=== PATIENT | female | born 1950 | race Caucasian/White ===

== ENCOUNTER 2016-04-24 09:23 | Inpatient (IN) | payer MEDICARE, OTHER ==
[~2016-04-24] VITALS: Ht 162.6 cm; Wt 84.5 kg
[2016-04-24] MEDS ORDERED: OPTIRAY 350 100 ML VIAL HMH IV ONE (09:24)
[2016-04-24] MEDS ORDERED: SODIUM CHLORIDE 0.9% 1,000 ML ONE ×2 (11:03→17:00)
[2016-04-24] MEDS ORDERED: ONDANSETRON 4 MG VIAL ONE ×3 (11:03→16:23)
[2016-04-24] MEDS ORDERED: DICYCLOMINE 20MG/2ML VIAL IM ONE (11:03)
[2016-04-24] MEDS ORDERED: ED METRONIDAZOLE IV 100 ML IV ONE (13:54)
[2016-04-24] MEDS ORDERED: LEVOFLOXACIN 500 MG TAB ONE (13:54)
[2016-04-24] MEDS ORDERED: MORPHINE 4 MG/ML SYR ONE (15:45)
[2016-04-24] MEDS ORDERED: HYOSCYAMINE 0.5 MG/ML AMP 1 ML ONE (17:12)
[2016-04-24] MEDS ORDERED: MAG HYDROX 30 ML UDC PO PRN (18:05)
[2016-04-24] MEDS ORDERED: ACETAMINOPHEN 325 MG TAB PO PRN (18:05)
[2016-04-24] MEDS ORDERED: ONDANSETRON 4 MG VIAL IV PRN (18:05)
[2016-04-24] MEDS ORDERED: ALU/MAG/SIM 30 ML UDC PO PRN (18:05)
[2016-04-24 20:25] VITALS: BP_SYST 132; RESP 20; TEMP 98.9; Ht 162.6 cm; Wt 84.5 kg
[2016-04-24] MEDS: SODIUM CHLOR 0.9% W/KCL 20MEQ 1,000 ML IV SCH (21:31)
[2016-04-24] MEDS: NORTRIPTYLINE 10 MG CAP PO SCH (22:55)
[2016-04-24 23:25] VITALS: BP_SYST 120; RESP 18; TEMP 98.9
[2016-04-25] VITALS (9 sets, daily range): BP systolic 116–126; RESP 16–20; TEMP 98.3–98.6
[2016-04-25] MEDS: METRONIDAZOLE 500MG/100ML 100 ML IV SCH ×4 (00:41→17:07)
[2016-04-25] MEDS: PANTOPRAZOLE 40 MG TAB PO SCH (06:21)
[2016-04-25] MEDS: SODIUM CHLOR 0.9% W/KCL 20MEQ 1,000 ML IV SCH ×2 (07:38→23:42)
[2016-04-25] MEDS: LEVOFLOXACIN 500 MG/100 ML 100 ML IV SCH (09:01)
[2016-04-25] MEDS: MONTELUKAST 10 MG TAB PO SCH (09:01)
[2016-04-25] MEDS: TRAMADOL 50 MG TAB PO PRN ×2 (09:10→20:42)
[2016-04-25] MEDS: NORTRIPTYLINE 10 MG CAP PO SCH (20:42)
[2016-04-26] VITALS (9 sets, daily range): BP systolic 124–173; RESP 12–20; TEMP 97.3–99.4
[2016-04-26] MEDS: METRONIDAZOLE 500MG/100ML 100 ML IV SCH ×4 (00:08→18:02)
[2016-04-26] MEDS: PANTOPRAZOLE 40 MG TAB PO SCH (05:50)
[2016-04-26] MEDS: MONTELUKAST 10 MG TAB PO SCH (09:03)
[2016-04-26] MEDS: LEVOFLOXACIN 500 MG/100 ML 100 ML IV SCH (09:04)
[2016-04-26] MEDS ORDERED: ONDANSETRON 4 MG VIAL IV PRN (11:15)
[2016-04-26] MEDS ORDERED: PROMETHAZINE 25 MG/ML VIAL IV PRN (11:15)
[2016-04-26] MEDS: FAMOTIDINE 20 MG INJ IV SCH ×2 (12:39→21:22)
[2016-04-26] MEDS: SODIUM CHLOR 0.9% W/KCL 20MEQ 1,000 ML IV SCH (16:38)
[2016-04-26] MEDS: NORTRIPTYLINE 10 MG CAP PO SCH (21:21)
[2016-04-27] VITALS (9 sets, daily range): BP systolic 141–169; RESP 12–20; TEMP 97.8–98.6
[2016-04-27] MEDS: METRONIDAZOLE 500MG/100ML 100 ML IV SCH ×5 (01:47→23:55)
[2016-04-27] MEDS: SODIUM CHLOR 0.9% W/KCL 20MEQ 1,000 ML IV SCH (05:49)
[2016-04-27] MEDS: FAMOTIDINE 20 MG INJ IV SCH ×2 (08:37→21:33)
[2016-04-27] MEDS: LEVOFLOXACIN 500 MG/100 ML 100 ML IV SCH (08:38)
[2016-04-27] MEDS: MONTELUKAST 10 MG TAB PO SCH (08:43)
[2016-04-27] MEDS: NORTRIPTYLINE 10 MG CAP PO SCH (21:33)
[2016-04-28] MEDS: SODIUM CHLOR 0.9% W/KCL 20MEQ 1,000 ML IV SCH (00:44)
[2016-04-28 03:05] VITALS: BP_SYST 151; RESP 12; TEMP 98.4
[2016-04-28] MEDS: METRONIDAZOLE 500MG/100ML 100 ML IV SCH (06:28)
[2016-04-28 07:38] VITALS: BP_SYST 162; RESP 16; TEMP 98.2
[2016-04-28] MEDS: LEVOFLOXACIN 500 MG/100 ML 100 ML IV SCH (09:00)
[2016-04-28] MEDS: FAMOTIDINE 20 MG INJ IV SCH (09:37)
[2016-04-28] MEDS: MONTELUKAST 10 MG TAB PO SCH (09:37)
[2016-04-28 10:37] VITALS: BP_SYST 151; RESP 18; TEMP 97.7
[2016-04-28 10:43] VITALS: BP_SYST 151; RESP 18; TEMP 97.7
== END 2016-04-28 11:37 | disposition home or self-care (01) | DRG 392 ==
LOC: ENRESERVTM → ENRESERVDT → ER 09:23 → ENPENDDIS 18:11 → EMR 18:11 → 3NT 19:41
PROVIDERS: ADMIT Internal Medicine; ATTEND Internal Medicine
DX: A09 Infectious gastroenteritis and colitis, unspecified (principal); I95.2 Hypotension due to drugs; N18.3 Chronic kidney disease, stage 3 (moderate); D62 Acute posthemorrhagic anemia; R15.9 Full incontinence of feces; E86.0 Dehydration; I12.9 Hypertensive chronic kidney disease with stage 1 through stage 4 chronic kidney disease, or unspecified chronic kidney disease; E78.5 Hyperlipidemia, unspecified; T40.2X5A Adverse effect of other opioids, initial encounter; M19.90 Unspecified osteoarthritis, unspecified site; K21.9 Gastro-esophageal reflux disease without esophagitis; E55.9 Vitamin D deficiency, unspecified; R32 Unspecified urinary incontinence; J30.9 Allergic rhinitis, unspecified; D50.9 Iron deficiency anemia, unspecified; M79.7 Fibromyalgia
CPT/HCPCS: 36415; 74177; 80048; 80053; 81001; 82274; 82553; 82728; 83540; 83605; 83630; 83690; 84466; 84484; 85025; 87040; 87045; 87046; 87177; 87493; 93005; 94799; 96361; 96365; 96372; 96375